=== PATIENT | male | born 2000 ===

== ENCOUNTER 2024-11-25 15:51 | Inpatient (IN) | payer OTHER, SELFPAY ==
[2024-11-25 16:12] VITALS: BP 120/74; BP 132/84; PULSE 73; PULSE 87; RESP 16; TEMP 37.1; O2SAT 100; O2SAT 98; BMI 19.0
[2024-11-25 16:17] VITALS: RESP 16
--- NOTE | 2024-11-25 16:47 | ED_ITS ---
HPI - Psych General Chief Complaint: Psychiatric Symptoms Stated Complaint: sect. 12 from n, paranoia,hallucinations Time Seen by Provider: 11/25/24 16:11 Source: patient and EMS Mode of arrival: EMS Limitations: no limitations History of Present Illness ED Provider: Marivel Spaulding NP HPI Narrative: Patient is a 24-year-old male who presents emergency department via EMS coming from [facility] office. Patient states he is here as he has not been doing well endorsing paranoia and hallucinations. Family expressed concern that he evidently has been collecting weapons at home. He states that he has been compliant with his divalproex as prescribed. Admits to has tried to establish relationship with a therapist in the past to [facility] but it has never really worked out. Admits that he has not slept in 3 days. On review of the section 12, patient with a history of schizoaffective disorder, bipolar type having paranoid hallucinations, delusions persecutory, auditory/visual/tactile hallucinations, grandiosity, poor judgment, poor insight, and manic. Denies recreational drug or alcohol usage. Denies suicidal or homicidal ideations. offers no physical complaints. Related Data Home Medications ?Medication ?Instructions ?Recorded ?Confirmed divalproex 500 mg tablet,delayed 500 mg PO BID 11/25/24 11/25/24 release Allergies Allergy/AdvReac Type Severity Reaction Status Date / Time No Known Allergies Allergy Verified 11/25/24 16:14 Review of Systems 2 Review of Systems: Yes all other systems are reviewed and are negative PMFSH Past Medical History Attestation statement: The following information was validated with the patient. Source: old records reviewed Social History Social History Smoked in Last 30 Days: No Use of substances other than those prescribed or required for medical reasons: No Advance Directives: No Advance Directives Information Provided: No Physical Exam 2 Vital Signs: Vital Signs: Last Vital Signs Temp 98.7 F 11/25/24 16:12 Pulse 73 11/25/24 16:12 Resp 16 11/25/24 16:17 BP 120/74 11/25/24 16:12 Pulse Ox 100 11/25/24 16:12 O2 Del Method Room Air 11/25/24 16:12 BMI result Body Mass Index 19.0 Appearance: Alert.?Oriented to person, place and time. No acute distress.?Normal affect. Eyes: Pupils equal, round and reactive to light.? ENT: Pharynx normal.?? Neck: Normal inspection.? Neck supple.?? CVS: Heart sounds normal. Normal heart rate and rhythm.? Pulses normal.?? Respiratory: No respiratory distress.? Lung sounds clear to auscultation bilaterally?? Abdomen: Soft and non-tender. Normoactive bowel sounds. Skin: Skin warm and dry.? Normal skin color.? Extremities: No lower extremity edema.? Neuro: Moves all extremities spontaneously. Sensation intact bilaterally. CN II- XII intact. No focal neuro deficits. Ambulates with normal steady gait. Course Reevaluation(s) Reevaluation #1: Patient meeting criteria for inpatient level of care, remains on section 12. Time: 19:56 Medical Decision Making Medical Decision Making [facility] Narrative: Patient is a 24-year-old male with past medical history of schizoaffective disorder, bipolar type who presents emergency department on a section 12 from [facility] as per HPI, having paranoid hallucinations, evidently collecting weapons at home. He offers no physical complaints in his physical examination at this time is benign. Overall he is well-appearing, nontoxic. Plan to obtain serum labs for medical clearance, and refer to care team for safe disposition planning. Differential Diagnosis Differential Diagnoses: The differential diagnosis associated with the presentation includes (See narrative above and below for further detail) Admission/Observation Consideration of admission/observation: Escalation of care including admission/observation considered Patient is being observed in the Emergency Department for paranoia and delusions. Observation time was started at 16:50 on 11/25/2024.?The patient is currently stable and non-toxic appearing. Observation is being initiated in the Emergency Department to allow time to help differentiate if the patient's paranoia and delusions is due to Bipolar Anitha, Bipolar Depression, and Schizophrenia. The patient will receive frequent psychiatric assessments from the provider as well as from nursing staff. The patient will also be monitored for the need of PRN agitation medications such as Haldol, Ativan, and Benadryl. Consult Healthcare Provider Management of the patient was discussed with: Behavioral Health Provider (CARE team) Lab Data [facility] Lab Attestation statement: I reviewed the patient's lab results. CBC is without leukocytosis, anemia, thrombocytopenia. No significant electrolyte derangement. No MARGARITA. LFTs unremarkable. Urinalysis without evidence to suggest infection. Toxicology is positive only for marijuana alcohol level nondetectable. 11/25/24 17:03 11/25/24 17:03 Labs: Lab Results 11/25/24 11/25/24 Range/Units 16:56 17:03 WBC 6.2 (4.8-10.8) X10*3/uL RBC 4.68 (4.60-5.80) X10*6/uL Hgb 14.2 (14.0-18.0) g/dl Hct 40.0 L (42.0-52.0) % MCV 85.5 (80.0-98.0) fL MCH 30.3 (27.0-33.0) pg MCHC 35.5 (31.0-36.0) g/dl RDW 13.0 (11.0-16.0) % Plt Count 182 (160-400) X10*3/uL MPV 10.6 (9.4-12.4) fL Immature Gran % (Auto) 0.2 (0.0-0.4) % Neut % (Auto) 36.9 L (45-73) % Lymph % (Auto) 49.7 H (20-40) % Wayne % (Auto) 12.2 H (2-11) % Eos % (Auto) 0.5 (0-4) % Baso % (Auto) 0.5 (0-2) % Lymph # (Auto) 3.1 (1.2-4.9) X10*3/uL Wayne # (Auto) 0.8 (0.1-1.2) X10*3/uL Eos # (Auto) 0.0 (0.0-0.4) X10*3/uL Baso # (Auto) 0.0 (0.0-0.2) X10*3/uL Abs Immat Gran (auto) 0.01 (0.00-0.03) X10*3/uL Absolute Neuts (auto) 2.3 (2.0-8.3) x10*3/uL Absolute Nucleated RBC 0.000 (0.0-0.012) X10*3/uL Nucleated RBC % (auto) 0.0 (0.0-0.2) /100WBC Sodium 142 (135-145) mmol/L Potassium 4.4 (3.3-5.1) mmol/L Chloride 110 H (96-108) mmol/L Carbon Dioxide 26 (22-29) mmol/L Anion Gap 10 L (12-20) BUN 10 (9-16) mg/dL Creatinine 0.95 (0.5-1.4) mg/dL Estim Creat Clear Calc 95.3 Estimated GFR > 60 Random Glucose 87 (60-115) mg/dL Calcium 9.5 (8.4-10.2) mg/dL Total Bilirubin 0.6 (0.0-1.0) mg/dL AST 29 (5-37) U/L ALT 27 (0-40) U/L Alkaline Phosphatase 69 (39-117) U/L Total Protein 6.7 (6.5-8.0) g/dL Albumin 4.5 (3.5-5.0) g/dL Urine Color Dark Yellow Urine Appearance Cloudy Urine pH 7.0 (5.0-9.0) Ur Specific Parlier 1.025 (1.005-1.025) Urine Protein Trace (Neg-Trace) mg/dL Urine Glucose (UA) Negative (Negative) mg/dL Urine Ketones 15 (Negative) mg/dL Urine Blood Negative (Negative) Urine Nitrite Negative (Negative) Ur Leukocyte Esterase Trace H (Negative) Urine RBC 0-2 (0-2) /HPF Urine WBC 0-5 (0-5) /HPF Ur Squamous Epith Cells 0-2 (0-2) /HPF Urine Bacteria None Seen (None Seen) Hyaline Casts 0-2 (0-2) /LPF Urine Opiates Screen Not Detected (Not Detect) Ur Buprenorphine Scrn Not Detected (Not Detect) ng/mL Ur Oxycodone Screen Not Detected (Not Detect) ng/mL Urine Methadone Screen Not Detected (Not Detect) ng/mL Urine Fentanyl Screen Not Detected (Not Detect) Ur Barbiturates Screen Not Detected (Not Detect) Ur Phencyclidine Scrn Not Detected (Not Detect) Ur Amphetamines Screen Not Detected (Not Detect) U Benzodiazepines Scrn Not Detected (Not Detect) Urine Cocaine Screen Not Detected (Not Detect) U Marijuana (THC) Screen POSITIVE H (Not Detect) Ethyl Alcohol < 10 mg/dL Independent Historian Clinical information obtained from an independent historian. History obtained from or confirmed by: EMS Discharge Plan Discharge Clinical Impression: Acute paranoia, Hallucination Patient Disposition: Still a Patient Prescriptions: No Action divalproex 500 mg tablet,delayed release (DR/EC) 500 mg PO BID Interventions: Kenly-Suicide Risk Severity Scale Last Done: 11/25/24 16:17 Print Language: Dutch
[2024-11-25 17:12] LABS: Appearance Urine Cloudy; Color Urine Dark Yellow; Glucose Urine UA Negative (Negative); Leukocyte Esterase Urine Trace (Negative); Nitrite Urine Negative (Negative); Specific Gravity - Urine 1.025 (1.005-1.025); UMIC TRIGGER UACC YES; Urine Blood Negative (Negative); Urine Ketones 15 mg/dL (Negative); Urine Protein Trace mg/dL (Neg-Trace)
[2024-11-25 17:15] LABS: Bacteria Urine None Seen (None Seen); Hyaline Casts Urine 0-2 /LPF (0-2); RBC Urine 0-2 /HPF (0-2); Squamous Epithelial Cell Urine 0-2 /HPF (0-2); WBC Urine 0-5 /HPF (0-5)
[2024-11-25 17:17] LABS: Amphetamine Screen Urine Not Detected (Not Detect); Barbiturates, Urine Not Detected (Not Detect); Benzodiazepines Screen Urine Not Detected (Not Detect); Buprenorphine Scr Not Detected (Not Detect); Cannabinoid Screen Urine POSITIVE (Not Detect); Cocaine Screen Urine Not Detected (Not Detect); Fentanyl, urine Not Detected (Not Detect); Methadone Screen, Urine Not Detected (Not Detect); Opiate Screen Urine Not Detected (Not Detect); Oxycodone Screen Urine Not Detected (Not Detect); Phencyclidine Screen Urine Not Detected (Not Detect)
[2024-11-25 17:22] LABS: MANUAL DIFF FLAG NO
--- NOTE | 2024-11-25 17:23 | PC.NURSE ---
patient is calm and cooperative, offering no complaints to this RN. Pending CARE eval
[2024-11-25 17:24] LABS: Basophils Percent Auto 0.5 % (0-2); Eosinophils Percent Auto 0.5 % (0-4); Hemoglobin 14.2 g/dl (14.0-18.0); Imm Gran Abs Auto 0.01 X10*3/uL (0.00-0.03); Imm Gran Pct Auto 0.2 % (0.0-0.4); Lymphocytes Absolute Auto 3.1 X10*3/uL (1.2-4.9); Lymphocytes Percent Auto 49.7 % (20-40); Mean Corpuscular HGB Conc 35.5 g/dl (31.0-36.0); Mean Corpuscular Hemoglobin 30.3 pg (27.0-33.0); Mean Corpuscular Volume 85.5 fL (80.0-98.0); Mean Platelet Volume 10.6 fL (9.4-12.4); Monocytes Absolute Auto 0.8 X10*3/uL (0.1-1.2); Monocytes Percent Auto 12.2 % (2-11); Neutrophils Absolute Auto 2.3 x10*3/uL (2.0-8.3); Neutrophils Percent Auto 36.9 % (45-73); Platelet Count 182 X10*3/uL (160-400); Red Blood Count 4.68 X10*6/uL (4.60-5.80); White Blood Count 6.2 X10*3/uL (4.8-10.8)
[2024-11-25 17:39] LABS: Alanine Aminotransferase 27 U/L (0-40); Albumin Level 4.5 g/dL (3.5-5.0); Alkaline Phosphatase 69 U/L (39-117); Anion Gap 10 (12-20); Aspartate Amino Transferase 29 U/L (5-37); Bilirubin Total 0.6 mg/dL (0.0-1.0); Blood Urea Nitrogen 10 mg/dL (9-16); Calcium 9.5 mg/dL (8.4-10.2); Carbon Dioxide 26 mmol/L (22-29); Chloride 110 mmol/L (96-108); Creatinine Clr Calc Pharmacy 95.3; Estimated Glomerular Filt Rate > 60; Ethanol < 10 mg/dL; Glucose Random 87 mg/dL (60-115); Potassium 4.4 mmol/L (3.3-5.1); Sodium 142 mmol/L (135-145); Total Protein 6.7 g/dL (6.5-8.0)
--- NOTE | 2024-11-25 19:52 | PC.NURSE ---
patient appears to remain at rest presently respirations are even and unlabored aptietn
--- NOTE | 2024-11-25 19:55 | PC.NURSE ---
appears in no distress...(continues from other note)
[2024-11-25] MEDS: Divalproex Sodium 500 MG TABLET.DR PO (20:15)
--- NOTE | 2024-11-26 | ECG_ITS ---
Test Reason : MED CLEARANCE Blood Pressure : */* mmHG Vent. Rate : 59 BPM Atrial Rate : 59 BPM P-R Int : 126 ms QRS Dur : 72 ms QT Int : 412 ms P-R-T Axes : 78 70 51 degrees QTcB Int : 407 ms Sinus bradycardia with Premature atrial complexes Otherwise normal ECG No previous ECGs available Referred By: Chica Alamraz Electronically Signed By: MEMO DANIELS MD
[2024-11-26 03:21] VITALS: BP 123/79; PULSE 56; RESP 17; TEMP 36.7; O2SAT 100
--- NOTE | 2024-11-26 04:09 | PC.NURSE ---
client seated in room on desk t/w inquired to any medications to help him i prefer not to take anything
[2024-11-26] MEDS: Divalproex Sodium 500 MG TABLET.DR PO ×2 (08:20→20:25)
--- NOTE | 2024-11-26 09:40 | MHC.CARE ---
Pt will be an inpatient adult bedsearch
--- NOTE | 2024-11-26 10:15 | PHA.MEDREC ---
Addendum entered by Darline Smyth RPh 11/26/24 10:18: reviewed by [facility]. Original Note: Pharmacy Consult ? Medication Reconciliation Pharmacy reviewed med rec done by nursing. Spoke with nurse who confirmed the med rec and she stated the patient only was taking Divalproex 500mg twice a day and had an Rx bottled she was able to use to confirm the med rec.
[2024-11-26 10:45] VITALS: BP 131/65; PULSE 55; RESP 14; TEMP 36.8; O2SAT 99
--- NOTE | 2024-11-26 11:28 | PC.NURSE ---
Speaking with Mother on the phone at this time. Patient is calm/cooperative, pleasant. Ambulates steadily. Able to make needs known. No acute distress. Inpatient bedsearch. Care ongoing by this RN.
[2024-11-26 14:13] VITALS: BP 140/79; PULSE 51; RESP 16; TEMP 36.9; O2SAT 99; BMI 18.9
--- NOTE | 2024-11-26 18:52 | PC.ADMIT ---
Addendum entered by Teri Malone RN 11/26/24 19:13: Abran did deny urges to harm self or others. He does appear to be internally preoccupied at times. Original Note: Abran arrived via wheelchair from [facility] ED pod. He is alert, oriented x4. He was cooperative with skin and safety check. The skin check was unremarkable. He initially had a blunted affect but throughout the interaction he grew more and more labile. Flat at times, laughing incongruently at times, irritable at others. Per Crisis report ??pt was seen by [facility] isaak on 11/24 at home after his mother requested an assessment, voicing concerns due to pt presenting with paranoia and concerning behavior. He was later seen on 11/25 at [facility] office after his mother reported concerns as pt has not been sleeping, paranoia, increased agitation. [facility] made him an inpatient bed search and he was BIBA. He reports poor sleep for about a week.? He initially refused to talk with this nurse at all. ?Whenever I say anything it gets me into situations like this?, and he turned his head away from tw. He spoke tangentially about a ?cousin that was locked away when I was a kid like this?, ?I am now going to be here forever?. He refuses to sign anything with tw. He denies any health problems and ?eats only healthy things?. He lives at home with his parents after losing his job a few weeks ago and breaking up with his partner which ?broke my spirit?, ?i love my parents, my relationship with my mom is complicated but good?. He has been receiving psychiatric care for a ?few years?, he has been regularly taking his depakote. He doesn't smoke, drink alcohol or use any substances. He appeared genuinely surprised when I mentioned his tox screen being positive for cannabis. ?I haven't smoked in at least 90 days?. He does endorse not sleeping. ?I thought that's why I was brought here, to sleep?. The conversation required frequent redirection to get back on topic. He often refers to ?people are out to get me? or similar. He wont elaborate, his voice trails off and he looks into the distance or at the table. He agreed to the flu vax, but refused to sign any ROIs. He did sign a CV with Dr Norman and is on 15 minute safety checks.
[2024-11-27 08:00] VITALS: BP 150/62; PULSE 48; RESP 18; TEMP 36.4; O2SAT 100
[2024-11-27] MEDS: Divalproex Sodium 500 MG TABLET.DR PO ×2 (08:50→20:35)
[2024-11-27 09:12] LABS: Estimated Average Glucose 105 mg/dL; Hemoglobin A1C 149.0605 umol/L; Hemoglobin A1c % 5.3 % (<6.0); Total Hemoglobin (HGBA1C) 4287.2088 umol/L
[2024-11-27 09:17] LABS: Cholesterol 133 mg/dL (<200); HDL Cholesterol 51 mg/dL (>40); LDL Cholesterol Calculated 71 mg/dL (<100); Magnesium 2.4 mg/dL (1.6-2.6); Triglycerides 58 mg/dL (<150)
[2024-11-27 09:35] LABS: Free T4 (Free Thyroxine) 1.12 ng/dL (0.71-1.85)
[2024-11-27 09:46] LABS: Folate 11.6 ng/mL (> or = 4.0); Vitamin B12 926 pg/mL (200-900)
[2024-11-27] MEDS: Flu Vacc TS2024-25(6mos up)/PF 0.5 ML SYRINGE IM (10:04)
[2024-11-27 20:00] VITALS: BP 122/84; PULSE 68; RESP 16; TEMP 36.6; O2SAT 98
--- NOTE | 2024-11-27 20:59 | P.HPPS_ITS ---
HPI Date of Service: 11/27/24 Chief Complaint: schizoaffective disorder Sources of Information: chart reviewed and crisis/core team assessment reviewed HPI Subjective Notes: Conditional Voluntary and 3 Day Healthcare Proxy: No Guardianship: No Medical Problems Affecting Mental Status: No Narrative: 24 yo male, hx of schizoaffective disorder, bipolar type to ER with EMS after a community crisis eval. Pt exhibiting sx of psychosis, paranoia, hallucinations per report along with grandiosity and poor judgment. Family reports poor sleep. Information is taken from crisis report as pt declined to meet with team for admission eval as we were not on his schedule Family reports pt is gathering weapons in the home as he is paranoid (taser, pepper spray). Past Psychiatric History: IP: 1 OP: Chano Mckoy APRN, [place], [place] Medical Evaluation Reviewed: Yes [facility] Medical History (Updated 11/27/24 @ 21:16 by Chica Almaraz APRN) Schizoaffective disorder, bipolar type Family History: Bipolar Social History: Born in [place], raised in various places in and out of the country. Sisters: 2 Raised also with the child of a relative graduate, [employer] 2023 Lives with parents Substance History: Cannabis positive Diagnostics Vital Signs (24Hr): Vital Signs - 24 hr 11/27/24 08:00 Temperature 97.5 F Pulse Rate 48 L Respiratory Rate 18 Blood Pressure 150/62 H Pulse Oximetry 100 Oxygen Delivery Method Room Air BMI result Body Mass Index 18.9 Labs 11/25/24 17:03 11/25/24 17:03 Labs: Laboratory Results - last 48 hr 11/27/24 08:12 Estimat Average Glucose 105 Hemoglobin A1c % 5.3 Magnesium 2.4 Triglycerides 58 Cholesterol 133 LDL Cholesterol, Calc 71 HDL Cholesterol 51 Vitamin B12 926 H Folate 11.6 TSH 1.10 Free T4 1.12 Meds/Allergies Meds Home Medications ?Medication ?Instructions ?Recorded ?Confirmed ?Type divalproex 500 mg tablet,delayed 500 mg PO BID 11/25/24 11/25/24 History release Allergies Allergies Allergy/AdvReac Type Severity Reaction Status Date / Time No Known Allergies Allergy Verified 11/25/24 16:14 Mental Status Exam Mental Status Exam Narrative: Pt declined to meet. He is observed in the milieu. He interacts briefly and exhibits paranoia Assessment & Plan Assessment & Plan (1) Schizoaffective disorder, bipolar type: Status: Acute Code(s): F25.0 - Schizoaffective disorder, bipolar type Plan Admit, CV-3 day placed, 15 minute checks Continue valproate Valproate level Olanzapine prn Encourage milieu engagement Collateral contacts Diagnostics as needed Discharge planning. Patient educated on: other Reason for continued inpatient stay Substantial Risk for: rapid decompensation Statement Statement: I have reviewed the history and physical and performed a pertinent examination on my patient. No changes have occurred unless specified. If the History and Physical was not performed prior to admission, the Hospitalist's service will be consulted for completing the admission physical. Time Spent With Patient Time: Total time managing care of this patient today ____ minutes.
[2024-11-28 07:52] VITALS: BP 115/58; PULSE 52; TEMP 36.7; O2SAT 99
[2024-11-28] MEDS: Divalproex Sodium 500 MG TABLET.DR PO ×2 (08:14→20:43)
[2024-11-28 08:53] LABS: Valproate 66.9 mcg/mL (50.0-100.0)
--- NOTE | 2024-11-28 10:06 | P.PNPSI_ITS ---
Subjective Subjective Date of Service: 11/28/24 Reason For Visit: schizoaffective disorder Subjective Notes: Coats Warning (gave on 11/28/24) Interim History: met with patient; discussed with team Draw Furnace Tender gave Coats warning. pt guarded with marketing copywriter. He says he needed to come here since he was not sleeping (for about 6 days prior to admission). He says he's feeling better now that he's slept. Draw Furnace Tender inquired regarding intake info and gathering tazer's, pepper spray...pt asked if he needed a billing associate...he then said i as told 'grab this stuff and go with your parents... but then asked if he needed a billing associate and said he does not like the line of questioning and very uncomfortable with the questions and left the interview...later he apologized to marketing copywriter saying he's just uncomfortable but understands this marketing copywriter is just doing writers job...He gave permission to talk w/ his parents.... talked w/ father and mother (pt gave permission to talk w/ parents) this episode started about 3 weeks ago (last episode in April; only went to ED; seems that when doing OK, no clear evidence of psychosis...) -they confirmed that he did get a tazer, pepper spray which is concerning to parents...he gave his mom the tazer without explanation. Had been saying protecting us and himself, lots of people coming after him and parents...they said he was done... reached out to parents at 4am asking father if they were safe (calling from his girlfriends) -He has paranoia, afraid, thinks someone after him, hearing voices, not sleeping...turning off Wifi worried he's being tracked and followed (also worried his parents are a part of it); he's suspicious of parents and others...does not want to take medications...(though they think he was taking the depakote). -would be paranoid others thinking about hurting him...mom would have to tell him that he's safe. Will ask did you hear that? that person said i'm going to hurt you.. or that a person is laughing at me getting in way of job; lost 3 jobs due to stress Seroquel: side-effects Episodes started HS. 2018 past hospitalization Sickle Cell trait Hematoma at 8months old with neurological sequela Mental Status Exam Mental Status Exam Narrative: Pt is alert and oriented; behavior is cooperative but also quite guarded; dressed in hospital attire with unkempt hair but adequate hygiene; mood is described as good though affect congruent constricted; eye contact appropriate; Speech is normal rate, volume and prosody and not pressured; no psychomotor agitation/retardation present; thought process is goal directed; Thought content is on tx but also alluded into suspicious ideations;; denies any SI/HI. Denies AVH though patient at times appears internally preoccupied Patients insight and judgment impaired Diagnostics Vital Signs (24Hr): Vital Signs - 24 hr 11/27/24 20:00 11/28/24 07:52 Temperature 98 F 98.1 F Pulse Rate 68 52 Respiratory Rate 16 Blood Pressure 122/84 115/58 L Pulse Oximetry 98 99 Oxygen Delivery Method Room Air Room Air BMI result Body Mass Index 18.9 Labs 11/25/24 17:03 11/25/24 17:03 Labs: Laboratory Results - last 48 hr 11/27/24 11/28/24 08:12 08:11 Estimat Average Glucose 105 Hemoglobin A1c % 5.3 Magnesium 2.4 Triglycerides 58 Cholesterol 133 LDL Cholesterol, Calc 71 HDL Cholesterol 51 Vitamin B12 926 H Folate 11.6 TSH 1.10 Free T4 1.12 Valproic Acid 66.9 Medications Medications Current Medications Acetaminophen (Acetaminophen 325 Mg Tablet) 650 mg PO Q6H PRN PRN Reason: Headache/Pain, Scale 1-10 Al Hydroxide/Mg Hydroxide (Magnesium Hydrox/Alum Hydrox 30 Ml Oral.Susp) 30 ml PO Q6H PRN PRN Reason: Heartburn/Nausea Divalproex Sodium (Divalproex Sodium 500 Mg Tablet.Dr) 500 mg PO BID CELSO Last Admin: 11/28/24 08:14 Dose: 500 mg Hydroxyzine HCl (Hydroxyzine Hcl 25 Mg Tablet) 25 mg PO Q6H PRN PRN Reason: mild anxiety Magnesium Hydroxide (Milk Of Magnesia 30 Ml Oral.Susp) 30 ml PO DAILY PRN PRN Reason: Constipation Nicotine Polacrilex (Nicotine Polacrilex 2 Mg Gum) 4 mg BUCCAL Q2H PRN PRN Reason: Nicotine Cravings Olanzapine (Olanzapine 5 Mg Tablet) 5 mg PO Q4H PRN PRN Reason: sadie, agitation Trazodone HCl (Trazodone Hcl 50 Mg Tablet) 50 mg PO BEDTIME MRX1 PRN PRN Reason: Insomnia Allergies Allergies Allergy/AdvReac Type Severity Reaction Status Date / Time No Known Allergies Allergy Verified 11/25/24 16:14 Assessment & Plan Assessment & Plan (1) Schizoaffective disorder, bipolar type: Status: Acute Code(s): F25.0 - Schizoaffective disorder, bipolar type (2) Sickle cell trait: Status: Acute Code(s): D57.3 - Sickle-cell trait Plan HPI: 24 yo male, hx of schizoaffective disorder, bipolar type to ER with EMS after a community crisis eval. Pt exhibiting sx of psychosis, paranoia, hallucinations per report along with grandiosity and poor judgment. Family reports poor sleep. Information is taken from crisis report as pt declined to meet with team for admission eval as we were not on his schedule Family reports pt is gathering weapons in the home as he is paranoid (taser, pepper spray). Past Psychiatric History: IP: 1 Hospital course: 11/28 Draw Furnace Tender gave Coats warning. pt guarded with marketing copywriter. He says he needed to come here since he was not sleeping (for about 6 days prior to admission). He says he's feeling better now that he's slept. Draw Furnace Tender inquired regarding intake info and gathering tazer's, pepper spray...pt asked if he needed a billing associate...he then said i as told 'grab this stuff and go with your parents... but then asked if he needed a billing associate and said he does not like the line of questioning and very uncomfortable with the questions and left the interview...later he apologized to marketing copywriter saying he's just uncomfortable but understands this marketing copywriter is just doing writers job...He gave permission to talk w/ his parents.... Collateral: talked w/ father and mother (pt gave permission to talk w/ parents) this episode started about 3 weeks ago (last episode in April; only went to ED; seems that when doing OK, no clear evidence of psychosis...) -they confirmed that he did get a tazer, pepper spray which is concerning to parents...he gave his mom the tazer without explanation. Had been saying protecting us and himself, lots of people coming after him and parents...they said he was done... reached out to parents at 4am asking father if they were safe (calling from his girlfriends) -He has paranoia, afraid, thinks someone after him, hearing voices, not sleeping...turning off Wifi worried he's being tracked and followed (also worried his parents are a part of it); he's suspicious of parents and others...does not want to take medications...(though they think he was taking the depakote). -would be paranoid others thinking about hurting him...mom would have to tell him that he's safe. Will ask did you hear that? that person said i'm going to hurt you.. or that a person is laughing at me getting in way of job; lost 3 jobs due to stress Seroquel: side-effects Episodes started HS. 2018; past hospitalization Sickle Cell trait Hematoma at 8months old with neurological sequela Plan: Three day notice Q 15 minute checks Continue Depakote 500 mg b.i.d.; if patient amenable, may tried to increase Hopefully patient will be open to further medication management Patient educated on: diagnosis and medication risk/benefits Informed Consent: does not understand Reason for continued inpatient stay Substantial Risk for: inability to function Time Spent With Patient Time: Total time managing care of this patient today ____ minutes.
[2024-11-28 20:00] VITALS: BP 127/87; TEMP 37.2; O2SAT 97
[2024-11-29 08:00] VITALS: BP 119/55; PULSE 60; RESP 16; TEMP 36.2; O2SAT 100
--- NOTE | 2024-11-29 08:13 | P.PNPSI_ITS ---
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- depakote - does not want increase dose or trial of antipsychotic- wanted to keep interview superficial and not discuss ppt events Medication Compliance: Yes Side effects from medications: No Attending Groups: Intermittent Review of Systems Acute medical concerns: No Medical Review of Systems: unchanged Mental Status Exam Mental Status Exam Patient Appearance: Appropriate Patient Orientation: Person, Place, Time and Situation Level of Consciousness: Awake Patient Behavior: Guarded Mood Description: Constricted Affect Description: Blunted Patient Cognition Impaired: No Ability to Follow Directions: Good Speech Pattern: Clear Hallucinations: None Delusions: Paranoid Ideation (? denies currently) Thought Process: Intact and Goal Oriented Thought Content: positive for Poverty of Content Depressive Symptoms: Difficulty Sleeping (better since here) Judgement: Fair Diagnostics Vital Signs (24Hr): Vital Signs - 24 hr 11/28/24 20:00 11/29/24 08:00 Temperature 98.9 F 97.2 F Pulse Rate 60 Respiratory Rate 16 Blood Pressure 127/87 119/55 L Pulse Oximetry 97 100 BMI result Body Mass Index 18.9 Labs 11/25/24 17:03 11/25/24 17:03 Labs: Laboratory Results - last 48 hr 11/27/24 11/28/24 08:12 08:11 Estimat Average Glucose 105 Hemoglobin A1c % 5.3 Magnesium 2.4 Triglycerides 58 Cholesterol 133 LDL Cholesterol, Calc 71 HDL Cholesterol 51 Vitamin B12 926 H Folate 11.6 TSH 1.10 Free T4 1.12 Valproic Acid 66.9 Medications Medications Current Medications Acetaminophen (Acetaminophen 325 Mg Tablet) 650 mg PO Q6H PRN PRN Reason: Headache/Pain, Scale 1-10 Al Hydroxide/Mg Hydroxide (Magnesium Hydrox/Alum Hydrox 30 Ml Oral.Susp) 30 ml PO Q6H PRN PRN Reason: Heartburn/Nausea Divalproex Sodium (Divalproex Sodium 500 Mg Tablet.) 500 mg PO BID CELSO Last Admin: 11/28/24 20:43 Dose: 500 mg Hydroxyzine HCl (Hydroxyzine Hcl 25 Mg Tablet) 25 mg PO Q6H PRN PRN Reason: mild anxiety Magnesium Hydroxide (Milk Of Magnesia 30 Ml Oral.Susp) 30 ml PO DAILY PRN PRN Reason: Constipation Nicotine Polacrilex (Nicotine Polacrilex 2 Mg Gum) 4 mg BUCCAL Q2H PRN PRN Reason: Nicotine Cravings Olanzapine (Olanzapine 5 Mg Tablet) 5 mg PO Q4H PRN PRN Reason: sadie, agitation Trazodone HCl (Trazodone Hcl 50 Mg Tablet) 50 mg PO BEDTIME MRX1 PRN PRN Reason: Insomnia Allergies Allergies Allergy/AdvReac Type Severity Reaction Status Date / Time No Known Allergies Allergy Verified 11/25/24 16:14 Assessment & Plan Assessment & Plan (1) Schizoaffective disorder, bipolar type: Status: Acute Code(s): F25.0 - Schizoaffective disorder, bipolar type (2) Sickle cell trait: Status: Acute Code(s): D57.3 - Sickle-cell trait Plan HPI: 24 yo male, hx of schizoaffective disorder, bipolar type to ER with EMS after a community crisis eval. Pt exhibiting sx of psychosis, paranoia, hallucinations per report along with grandiosity and poor judgment. Family reports poor sleep. Information is taken from crisis report as pt declined to meet with team for admission eval as we were not on his schedule Family reports pt is gathering weapons in the home as he is paranoid (taser, pepper spray). Past Psychiatric History: IP: 1 Hospital course: 11/28 Civil Technician gave Coats warning. pt guarded with television script writer. He says he needed to come here since he was not sleeping (for about 6 days prior to admission). He says he's feeling better now that he's slept. Civil Technician inquired regarding intake info and gathering tazer's, pepper spray...pt asked if he needed a staff scientist...he then said i as told 'grab this stuff and go with your parents... but then asked if he needed a staff scientist and said he does not like the line of questioning and very uncomfortable with the questions and left the interview...later he apologized to television script writer saying he's just uncomfortable but understands this television script writer is just doing writers job...He gave permission to talk w/ his parents.... Collateral: talked w/ father and mother (pt gave permission to talk w/ parents) this episode started about 3 weeks ago (last episode in April; only went to ED; seems that when doing OK, no clear evidence of psychosis...) -they confirmed that he did get a tazer, pepper spray which is concerning to parents...he gave his mom the tazer without explanation. Had been saying protecting us and himself, lots of people coming after him and parents...they said he was done... reached out to parents at 4am asking father if they were safe (calling from his girlfriends) -He has paranoia, afraid, thinks someone after him, hearing voices, not sleeping...turning off Wifi worried he's being tracked and followed (also worried his parents are a part of it); he's suspicious of parents and others...does not want to take medications...(though they think he was taking the depakote). -would be paranoid others thinking about hurting him...mom would have to tell him that he's safe. Will ask did you hear that? that person said i'm going to hurt you.. or that a person is laughing at me getting in way of job; lost 3 jobs due to stress Seroquel: side-effects Episodes started HS. 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 Patient educated on: medication risk/benefits Informed Consent: further education needed Reason for continued inpatient stay Substantial Risk for: rapid decompensation Time Spent With Patient Time: Total time managing care of this patient today ____ minutes.
[2024-11-29] MEDS: Divalproex Sodium 500 MG TABLET.DR PO ×2 (08:29→21:12)
[2024-11-29 20:00] VITALS: BP 119/75; PULSE 68; TEMP 36.9; O2SAT 99
[2024-11-30 08:00] VITALS: BP 126/72; PULSE 88; RESP 16; TEMP 36.4; O2SAT 98
[2024-11-30] MEDS: Divalproex Sodium 500 MG TABLET.DR PO ×2 (08:46→20:12)
--- NOTE | 2024-11-30 10:41 | HO.PSYCHPN ---
Subjective Subjective Date of Service: 11/30/24 Reason For Visit: schizoaffective disorder Subjective Notes: Conditional Voluntary Healthcare Proxy: No Guardianship: No Medical Problems Affecting Mental Status: No Interim History: 24 yo glad to be sleeping, not really wanting to get into how he was feeling before admission or why he was feeling that way and what might be different now- since we have not changed medication- discussed ? of what will be different when he goes home- if he doesn't understand this or discuss. Medication Compliance: Yes Side effects from medications: No Attending Groups: Intermittent Review of Systems Acute medical concerns: No Medical Review of Systems: unchanged Mental Status Exam Mental Status Exam Patient Appearance: Appropriate Patient Orientation: Person, Place, Time and Situation Level of Consciousness: Awake Patient Behavior: Guarded Mood Description: Constricted Affect Description: Blunted Patient Cognition Impaired: No Ability to Follow Directions: Good Speech Pattern: Clear Hallucinations: None Delusions: Paranoid Ideation (? denies currently) Thought Process: Intact and Goal Oriented Thought Content: positive for Poverty of Content Depressive Symptoms: Difficulty Sleeping (better since here) Judgement: Fair Diagnostics Vital Signs (24Hr): Vital Signs - 24 hr 11/29/24 20:00 11/30/24 08:00 Temperature 98.5 F 97.5 F Pulse Rate 68 88 Respiratory Rate 16 Blood Pressure 119/75 126/72 Pulse Oximetry 99 98 Oxygen Delivery Method Room Air BMI result Body Mass Index 18.9 Labs 11/25/24 17:03 11/25/24 17:03 Medications Medications Current Medications Acetaminophen (Acetaminophen 325 Mg Tablet) 650 mg PO Q6H PRN PRN Reason: Headache/Pain, Scale 1-10 Al Hydroxide/Mg Hydroxide (Magnesium Hydrox/Alum Hydrox 30 Ml Oral.Susp) 30 ml PO Q6H PRN PRN Reason: Heartburn/Nausea Divalproex Sodium (Divalproex Sodium 500 Mg Tablet.Dr) 500 mg PO BID CELSO Last Admin: 11/30/24 08:46 Dose: 500 mg Hydroxyzine HCl (Hydroxyzine Hcl 25 Mg Tablet) 25 mg PO Q6H PRN PRN Reason: mild anxiety Magnesium Hydroxide (Milk Of Magnesia 30 Ml Oral.Susp) 30 ml PO DAILY PRN PRN Reason: Constipation Nicotine Polacrilex (Nicotine Polacrilex 2 Mg Gum) 4 mg BUCCAL Q2H PRN PRN Reason: Nicotine Cravings Olanzapine (Olanzapine 5 Mg Tablet) 5 mg PO Q4H PRN PRN Reason: sadie, agitation Trazodone HCl (Trazodone Hcl 50 Mg Tablet) 50 mg PO BEDTIME MRX1 PRN PRN Reason: Insomnia Allergies Allergies Allergy/AdvReac Type Severity Reaction Status Date / Time No Known Allergies Allergy Verified 11/25/24 16:14 Assessment & Plan Assessment & Plan (1) Schizoaffective disorder, bipolar type: Status: Acute Code(s): F25.0 - Schizoaffective disorder, bipolar type (2) Sickle cell trait: Status: Acute Code(s): D57.3 - Sickle-cell trait Plan HPI: 24 yo male, hx of schizoaffective disorder, bipolar type to ER with EMS after a community crisis eval. Pt exhibiting sx of psychosis, paranoia, hallucinations per report along with grandiosity and poor judgment. Family reports poor sleep. Information is taken from crisis report as pt declined to meet with team for admission eval as we were not on his schedule Family reports pt is gathering weapons in the home as he is paranoid (taser, pepper spray). Past Psychiatric History: IP: 1 Hospital course: 11/28 Manager Equity gave Coats warning. pt guarded with service writer advisor. He says he needed to come here since he was not sleeping (for about 6 days prior to admission). He says he's feeling better now that he's slept. Manager Equity inquired regarding intake info and gathering tazer's, pepper spray...pt asked if he needed a guest experience representative...he then said i as told 'grab this stuff and go with your parents... but then asked if he needed a guest experience representative and said he does not like the line of questioning and very uncomfortable with the questions and left the interview...later he apologized to service writer advisor saying he's just uncomfortable but understands this service writer advisor is just doing writers job...He gave permission to talk w/ his parents.... Collateral: talked w/ father and mother (pt gave permission to talk w/ parents) this episode started about 3 weeks ago (last episode in April; only went to ED; seems that when doing OK, no clear evidence of psychosis...) -they confirmed that he did get a tazer, pepper spray which is concerning to parents...he gave his mom the tazer without explanation. Had been saying protecting us and himself, lots of people coming after him and parents...they said he was done... reached out to parents at 4am asking father if they were safe (calling from his girlfriends) -He has paranoia, afraid, thinks someone after him, hearing voices, not sleeping...turning off Wifi worried he's being tracked and followed (also worried his parents are a part of it); he's suspicious of parents and others...does not want to take medications...(though they think he was taking the depakote). -would be paranoid others thinking about hurting him...mom would have to tell him that he's safe. Will ask did you hear that? that person said i'm going to hurt you.. or that a person is laughing at me getting in way of job; lost 3 jobs due to stress Seroquel: side-effects Episodes started HS. 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 11/30 - continues to keep things superficial- glad he is sleeping - CTP Patient educated on: medication risk/benefits and therapeutic strategies Informed Consent: further education needed Reason for continued inpatient stay Substantial Risk for: rapid decompensation Time Spent With Patient Time: Total time managing care of this patient today ____ minutes.
[2024-11-30 19:42] VITALS: BP 143/71; PULSE 66; RESP 15; TEMP 36.8; O2SAT 98
[2024-12-01 07:57] VITALS: BP 137/74; PULSE 96; TEMP 36.9; O2SAT 98
[2024-12-01] MEDS: Divalproex Sodium 500 MG TABLET.DR PO ×2 (08:49→22:03)
--- NOTE | 2024-12-01 09:22 | HO.PSYCHPN ---
Subjective Subjective Date of Service: 12/01/24 Reason For Visit: schizoaffective disorder Interim History: met with patient; discussed with team; reviewed chart Patient friendly on approach however he soon became guarded said he was done talking. Prior to this he said he continued to feel better restored and back to his regular self which he described as reading, eating and into stuff... n patient attributes this to getting more sleep. When asked why he was not getting sleep before and why he thinks he is getting more sleep now patient could only point to his diet but started to say he did not like this question; when asked about his parents report that patient had been concerned about safety, he said that is just how they respond to things but again said he did not like the questions; inspector automatic typewriter asked about reasons for his guarded approach and vagueness at which point pt said he was done talking Mental Status Exam Mental Status Exam Narrative: Pt is alert and oriented; behavior is cooperative, friendly on approach but guarded with any serious inquiry; dressed in hospital attire with unkempt hair but adequate hygiene; mood is described as good though affect congruent constricted; eye contact appropriate; Speech is normal rate, volume and prosody and not pressured; no psychomotor agitation/retardation present; thought process is goal directed; Thought content is on tx but also alluded into suspicious ideations;; denies any SI/HI. Denies AVH though patient at times appears internally preoccupied Patients insight and judgment impaired Diagnostics Vital Signs (24Hr): Vital Signs - 24 hr 11/30/24 19:42 12/01/24 07:57 Temperature 98.2 F 98.4 F Pulse Rate 66 96 Respiratory Rate 15 Blood Pressure 143/71 H 137/74 Pulse Oximetry 98 98 Oxygen Delivery Method Room Air BMI result Body Mass Index 18.9 Labs 11/25/24 17:03 11/25/24 17:03 Medications Medications Current Medications Acetaminophen (Acetaminophen 325 Mg Tablet) 650 mg PO Q6H PRN PRN Reason: Headache/Pain, Scale 1-10 Al Hydroxide/Mg Hydroxide (Magnesium Hydrox/Alum Hydrox 30 Ml Oral.Susp) 30 ml PO Q6H PRN PRN Reason: Heartburn/Nausea Divalproex Sodium (Divalproex Sodium 500 Mg Tablet.) 500 mg PO BID CELSO Last Admin: 12/01/24 08:49 Dose: 500 mg Hydroxyzine HCl (Hydroxyzine Hcl 25 Mg Tablet) 25 mg PO Q6H PRN PRN Reason: mild anxiety Magnesium Hydroxide (Milk Of Magnesia 30 Ml Oral.Susp) 30 ml PO DAILY PRN PRN Reason: Constipation Nicotine Polacrilex (Nicotine Polacrilex 2 Mg Gum) 4 mg BUCCAL Q2H PRN PRN Reason: Nicotine Cravings Olanzapine (Olanzapine 5 Mg Tablet) 5 mg PO Q4H PRN PRN Reason: sadie, agitation Trazodone HCl (Trazodone Hcl 50 Mg Tablet) 50 mg PO BEDTIME MRX1 PRN PRN Reason: Insomnia Allergies Allergies Allergy/AdvReac Type Severity Reaction Status Date / Time No Known Allergies Allergy Verified 11/25/24 16:14 Assessment & Plan Assessment & Plan (1) Schizoaffective disorder, bipolar type: Status: Acute Code(s): F25.0 - Schizoaffective disorder, bipolar type (2) Sickle cell trait: Status: Acute Code(s): D57.3 - Sickle-cell trait Plan HPI: 24 yo male, hx of schizoaffective disorder, bipolar type to ER with EMS after a community crisis eval. Pt exhibiting sx of psychosis, paranoia, hallucinations per report along with grandiosity and poor judgment. Family reports poor sleep. Information is taken from crisis report as pt declined to meet with team for admission eval as we were not on his schedule Family reports pt is gathering weapons in the home as he is paranoid (taser, pepper spray). Past Psychiatric History: IP: 1 Hospital course: 11/28 Machine Dyer gave Coats warning. pt guarded with inspector automatic typewriter. He says he needed to come here since he was not sleeping (for about 6 days prior to admission). He says he's feeling better now that he's slept. Machine Dyer inquired regarding intake info and gathering tazer's, pepper spray...pt asked if he needed a certified ophthalmic assistant...he then said i as told 'grab this stuff and go with your parents... but then asked if he needed a certified ophthalmic assistant and said he does not like the line of questioning and very uncomfortable with the questions and left the interview...later he apologized to inspector automatic typewriter saying he's just uncomfortable but understands this inspector automatic typewriter is just doing writers job...He gave permission to talk w/ his parents.... Collateral: talked w/ father and mother (pt gave permission to talk w/ parents) this episode started about 3 weeks ago (last episode in April; only went to ED; seems that when doing OK, no clear evidence of psychosis...) -they confirmed that he did get a tazer, pepper spray which is concerning to parents...he gave his mom the tazer without explanation. Had been saying protecting us and himself, lots of people coming after him and parents...they said he was done... reached out to parents at 4am asking father if they were safe (calling from his girlfriends) -He has paranoia, afraid, thinks someone after him, hearing voices, not sleeping...turning off Wifi worried he's being tracked and followed (also worried his parents are a part of it); he's suspicious of parents and others...does not want to take medications...(though they think he was taking the depakote). -would be paranoid others thinking about hurting him...mom would have to tell him that he's safe. Will ask did you hear that? that person said i'm going to hurt you.. or that a person is laughing at me getting in way of job; lost 3 jobs due to stress Seroquel: side-effects Episodes started HS. 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 11/30 - continues to keep things superficial- glad he is sleeping - CTP 12/01 guarded, vague; calm and friendly as long as no serious inquiries no insight -agrees to labs Patient educated on: diagnosis and medication risk/benefits Informed Consent: does not understand Reason for continued inpatient stay Substantial Risk for: rapid decompensation Time Spent With Patient Time: Total time managing care of this patient today ____ minutes.
[2024-12-01 20:00] VITALS: BP 128/83; PULSE 98; RESP 16; TEMP 36.3; O2SAT 93
[2024-12-02] MEDS: hydrOXYzine HCL 25 MG TABLET PO (01:46)
[2024-12-02 07:50] VITALS: BP 123/70; PULSE 90; RESP 18; TEMP 36.2; O2SAT 99
[2024-12-02] MEDS: Divalproex Sodium 500 MG TABLET.DR PO ×2 (08:13→21:33)
[2024-12-02 08:45] LABS: Ammonia 34 umol/L (13-55)
[2024-12-02 08:52] LABS: Alanine Aminotransferase 37 U/L (0-40); Albumin Level 4.5 g/dL (3.5-5.0); Alkaline Phosphatase 76 U/L (39-117); Aspartate Amino Transferase 29 U/L (5-37); Bilirubin Direct 0.4 mg/dL (0.0-0.5); Total Protein 6.8 g/dL (6.5-8.0)
[2024-12-02 08:53] LABS: Valproate 69.7 mcg/mL (50.0-100.0)
[2024-12-02 20:00] VITALS: BP 132/71; PULSE 72; TEMP 36.7; O2SAT 99
[2024-12-03 08:00] VITALS: BP 144/69; PULSE 76; RESP 18; TEMP 36.4; O2SAT 100
[2024-12-03] MEDS: Divalproex Sodium 500 MG TABLET.DR PO ×2 (08:31→21:19)
--- NOTE | 2024-12-03 10:16 | HO.PSYCHPN ---
Subjective Subjective Date of Service: 12/02/24 Reason For Visit: schizoaffective disorder Interim History: late entry note for patient seen on 12/02/24; family meeting pt remains w/out insight. Says he's doing well since he's sleeping now; during meeting however, demonstrates paranoid ideations, thinking staff is purposefully trying to antagonize him. Refuses any additional medications even at [facility] Mental Status Exam Mental Status Exam Narrative: Pt is alert and oriented; behavior is cooperative, friendly on approach but guarded with any serious inquiry; attends groups but easily triggered and becomes internally agitated; dressed in casual attire with adequate grooming and hygiene; mood is described as good though affect congruent constricted; eye contact appropriate but becomes intense; Speech is normal rate, volume and prosody and not pressured; no psychomotor agitation/retardation present; thought process is goal directed; Thought content with suspicious ideations;; denies any SI/HI. Denies AVH though patient at times appears internally preoccupied Patients insight and judgment impaired, but likely at baseline. Diagnostics Vital Signs (24Hr): Vital Signs - 24 hr 12/02/24 20:00 12/03/24 08:00 Temperature 98.1 F 97.5 F Pulse Rate 72 76 Respiratory Rate 18 Blood Pressure 132/71 144/69 H Pulse Oximetry 99 100 Oxygen Delivery Method Room Air Room Air BMI result Body Mass Index 18.9 Labs 11/25/24 17:03 11/25/24 17:03 Labs: Laboratory Results - last 48 hr 12/02/24 08:11 Total Bilirubin 1.0 Direct Bilirubin 0.4 AST 29 ALT 37 Alkaline Phosphatase 76 Ammonia 34 Total Protein 6.8 Albumin 4.5 Valproic Acid 69.7 Medications Medications Current Medications Acetaminophen (Acetaminophen 325 Mg Tablet) 650 mg PO Q6H PRN PRN Reason: Headache/Pain, Scale 1-10 Al Hydroxide/Mg Hydroxide (Magnesium Hydrox/Alum Hydrox 30 Ml Oral.Susp) 30 ml PO Q6H PRN PRN Reason: Heartburn/Nausea Divalproex Sodium (Divalproex Sodium 500 Mg Tablet.Dr) 500 mg PO BID CELSO Last Admin: 12/03/24 08:31 Dose: 500 mg Hydroxyzine HCl (Hydroxyzine Hcl 25 Mg Tablet) 25 mg PO Q6H PRN PRN Reason: mild anxiety Last Admin: 12/02/24 01:46 Dose: 25 mg Magnesium Hydroxide (Milk Of Magnesia 30 Ml Oral.Susp) 30 ml PO DAILY PRN PRN Reason: Constipation Nicotine Polacrilex (Nicotine Polacrilex 2 Mg Gum) 4 mg BUCCAL Q2H PRN PRN Reason: Nicotine Cravings Olanzapine (Olanzapine 5 Mg Tablet) 5 mg PO Q4H PRN PRN Reason: sadie, agitation Trazodone HCl (Trazodone Hcl 50 Mg Tablet) 50 mg PO BEDTIME MRX1 PRN PRN Reason: Insomnia Allergies Allergies Allergy/AdvReac Type Severity Reaction Status Date / Time No Known Allergies Allergy Verified 11/25/24 16:14 Assessment & Plan Assessment & Plan (1) Schizoaffective disorder, bipolar type: Status: Acute Code(s): F25.0 - Schizoaffective disorder, bipolar type (2) Sickle cell trait: Status: Acute Code(s): D57.3 - Sickle-cell trait Plan HPI: 24 yo male, hx of schizoaffective disorder, bipolar type to ER with EMS after a community crisis eval. Pt exhibiting sx of psychosis, paranoia, hallucinations per report along with grandiosity and poor judgment. Family reports poor sleep. Information is taken from crisis report as pt declined to meet with team for admission eval as we were not on his schedule Family reports pt is gathering weapons in the home as he is paranoid (taser, pepper spray). Past Psychiatric History: IP: 1 Hospital course: 11/28 Asphalt Distributor Operator gave Coats warning. pt guarded with creative services writer. He says he needed to come here since he was not sleeping (for about 6 days prior to admission). He says he's feeling better now that he's slept. Asphalt Distributor Operator inquired regarding intake info and gathering tazer's, pepper spray...pt asked if he needed a student life advisor...he then said i as told 'grab this stuff and go with your parents... but then asked if he needed a student life advisor and said he does not like the line of questioning and very uncomfortable with the questions and left the interview...later he apologized to creative services writer saying he's just uncomfortable but understands this creative services writer is just doing writers job...He gave permission to talk w/ his parents.... Collateral: talked w/ father and mother (pt gave permission to talk w/ parents) this episode started about 3 weeks ago (last episode in April; only went to ED; seems that when doing OK, no clear evidence of psychosis...) -they confirmed that he did get a tazer, pepper spray which is concerning to parents...he gave his mom the tazer without explanation. Had been saying protecting us and himself, lots of people coming after him and parents...they said he was done... reached out to parents at 4am asking father if they were safe (calling from his girlfriends) -He has paranoia, afraid, thinks someone after him, hearing voices, not sleeping...turning off Wifi worried he's being tracked and followed (also worried his parents are a part of it); he's suspicious of parents and others...does not want to take medications...(though they think he was taking the depakote). -would be paranoid others thinking about hurting him...mom would have to tell him that he's safe. Will ask did you hear that? that person said i'm going to hurt you.. or that a person is laughing at me getting in way of job; lost 3 jobs due to stress Seroquel: side-effects Episodes started HS. 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 11/30 - continues to keep things superficial- glad he is sleeping - CTP 12/01 guarded, vague; calm and friendly as long as no serious inquiries no insight -agrees to labs 12/02 pt remains w/out insight. Says he's doing well since he's sleeping now; during meeting however, demonstrates paranoid ideations, thinking staff is purposefully trying to antagonize him. Refuses any additional medications even at parents behest. Does not recognize limitations due to illness -wants discharge this week; will see if pt changes his mind Plan: cv Q 15 minute checks Continue Depakote 500 mg b.i.d.; if patient amenable, may tried to increas Pt not open to further medication management Patient educated on: diagnosis and medication risk/benefits Informed Consent: does not understand Reason for continued inpatient stay Substantial Risk for: rapid decompensation Time Spent With Patient Time: Total time managing care of this patient today ____ minutes.
--- NOTE | 2024-12-03 10:17 | HO.PSYCHPN ---
Subjective Subjective Date of Service: 12/03/24 Reason For Visit: schizoaffective disorder Interim History: met with patient; discussed with team pt remains adamant that he does not want to take any additional medication; continues to express paranoid ideations but otherwise, [place] [facility] [place] Status Exam Mental Status Exam Narrative: Pt is alert and oriented; behavior is cooperative, friendly on approach but guarded with any serious inquiry; attends groups but easily triggered and becomes internally agitated; dressed in casual attire with adequate grooming and hygiene; mood is described as good though affect congruent constricted; eye contact appropriate but becomes intense; Speech is normal rate, volume and prosody and not pressured; no psychomotor agitation/retardation present; thought process is goal directed; Thought content with suspicious ideations;; denies any SI/HI. Denies AVH though patient at times appears internally preoccupied Patients insight and judgment impaired, but likely at baseline. Diagnostics Vital Signs (24Hr): Vital Signs - 24 hr 12/02/24 20:00 12/03/24 08:00 Temperature 98.1 F 97.5 F Pulse Rate 72 76 Respiratory Rate 18 Blood Pressure 132/71 144/69 H Pulse Oximetry 99 100 Oxygen Delivery Method Room Air Room Air BMI result Body Mass Index 18.9 Labs 11/25/24 17:03 11/25/24 17:03 Labs: Laboratory Results - last 48 hr 12/02/24 08:11 Total Bilirubin 1.0 Direct Bilirubin 0.4 AST 29 ALT 37 Alkaline Phosphatase 76 Ammonia 34 Total Protein 6.8 Albumin 4.5 Valproic Acid 69.7 Medications Medications Current Medications Acetaminophen (Acetaminophen 325 Mg Tablet) 650 mg PO Q6H PRN PRN Reason: Headache/Pain, Scale 1-10 Al Hydroxide/Mg Hydroxide (Magnesium Hydrox/Alum Hydrox 30 Ml Oral.Susp) 30 ml PO Q6H PRN PRN Reason: Heartburn/Nausea Divalproex Sodium (Divalproex Sodium 500 Mg Tablet.Dr) 500 mg PO BID CELSO Last Admin: 12/03/24 08:31 Dose: 500 mg Hydroxyzine HCl (Hydroxyzine Hcl 25 Mg Tablet) 25 mg PO Q6H PRN PRN Reason: mild anxiety Last Admin: 12/02/24 01:46 Dose: 25 mg Magnesium Hydroxide (Milk Of Magnesia 30 Ml Oral.Susp) 30 ml PO DAILY PRN PRN Reason: Constipation Nicotine Polacrilex (Nicotine Polacrilex 2 Mg Gum) 4 mg BUCCAL Q2H PRN PRN Reason: Nicotine Cravings Olanzapine (Olanzapine 5 Mg Tablet) 5 mg PO Q4H PRN PRN Reason: sadie, agitation Trazodone HCl (Trazodone Hcl 50 Mg Tablet) 50 mg PO BEDTIME MRX1 PRN PRN Reason: Insomnia Allergies Allergies Allergy/AdvReac Type Severity Reaction Status Date / Time No Known Allergies Allergy Verified 11/25/24 16:14 Assessment & Plan Assessment & Plan (1) Schizoaffective disorder, bipolar type: Status: Acute Code(s): F25.0 - Schizoaffective disorder, bipolar type (2) Sickle cell trait: Status: Acute Code(s): D57.3 - Sickle-cell trait Plan HPI: 24 yo male, hx of schizoaffective disorder, bipolar type to ER with EMS after a community crisis eval. Pt exhibiting sx of psychosis, paranoia, hallucinations per report along with grandiosity and poor judgment. Family reports poor sleep. Information is taken from crisis report as pt declined to meet with team for admission eval as we were not on his schedule Family reports pt is gathering weapons in the home as he is paranoid (taser, pepper spray). Past Psychiatric History: IP: 1 Hospital course: 11/28 Associate Professor Of Theatre gave Coats warning. pt guarded with service writer advisor. He says he needed to come here since he was not sleeping (for about 6 days prior to admission). He says he's feeling better now that he's slept. Associate Professor Of Theatre inquired regarding intake info and gathering tazer's, pepper spray...pt asked if he needed a take out waitress...he then said i as told 'grab this stuff and go with your parents... but then asked if he needed a take out waitress and said he does not like the line of questioning and very uncomfortable with the questions and left the interview...later he apologized to service writer advisor saying he's just uncomfortable but understands this service writer advisor is just doing writers job...He gave permission to talk w/ his parents.... Collateral: talked w/ father and mother (pt gave permission to talk w/ parents) this episode started about 3 weeks ago (last episode in April; only went to ED; seems that when doing OK, no clear evidence of psychosis...) -they confirmed that he did get a tazer, pepper spray which is concerning to parents...he gave his mom the tazer without explanation. Had been saying protecting us and himself, lots of people coming after him and parents...they said he was done... reached out to parents at 4am asking father if they were safe (calling from his girlfriends) -He has paranoia, afraid, thinks someone after him, hearing voices, not sleeping...turning off Wifi worried he's being tracked and followed (also worried his parents are a part of it); he's suspicious of parents and others...does not want to take medications...(though they think he was taking the depakote). -would be paranoid others thinking about hurting him...mom would have to tell him that he's safe. Will ask did you hear that? that person said i'm going to hurt you.. or that a person is laughing at me getting in way of job; lost 3 jobs due to stress Seroquel: side-effects Episodes started HS. 2018; past hospitalization Sickle Cell trait Hematoma at 8months old with neurological sequela 12/02 pt remains w/out insight. Says he's doing well since he's sleeping now; during meeting however, demonstrates paranoid ideations, thinking staff is purposefully trying to antagonize him. Refuses any additional medications even at parents behest. Does not recognize limitations due to illness -wants discharge this week 12/03 no change in presentation; still won't take additional medication. Will give a few more days and if remains stable, will likely proceed with dc Plan: cv Q 15 minute checks Continue Depakote 500 mg b.i.d.; if patient amenable, may tried to increas Pt not open to further medication management Patient educated on: diagnosis and medication risk/benefits Informed Consent: does not understand Reason for continued inpatient stay Substantial Risk for: rapid decompensation Time Spent With Patient Time: Total time managing care of this patient today ____ minutes.
[2024-12-03 19:49] VITALS: O2SAT 100
[2024-12-03 20:05] VITALS: BP 147/82
[2024-12-04 07:00] VITALS: BMI 19.7
[2024-12-04 08:00] VITALS: BP 151/80; PULSE 80; RESP 16; TEMP 36.4; O2SAT 99
[2024-12-04] MEDS: Divalproex Sodium 500 MG TABLET.DR PO ×2 (08:36→22:28)
[2024-12-04 20:00] VITALS: BP 104/57; PULSE 83; RESP 16; TEMP 36.9; O2SAT 99
[2024-12-05 08:00] VITALS: BP 146/79; PULSE 85; RESP 16; TEMP 36.7; O2SAT 100
[2024-12-05] MEDS: Divalproex Sodium 500 MG TABLET.DR PO ×2 (09:04→21:20)
--- NOTE | 2024-12-05 10:01 | HO.PSYCHPN ---
Subjective Subjective Date of Service: 12/04/24 Reason For Visit: schizoaffective disorder Interim History: late entry note for pt seen on 12/04/24; discussed with team same presentation; accepts keno writer reasoning for risperdal but politlely declines Mental Status Exam Mental Status Exam Narrative: Pt is alert and oriented; behavior is cooperative, friendly on approach but guarded with any serious inquiry; attends groups but easily triggered and becomes internally agitated; dressed in casual attire with adequate grooming and hygiene; mood is described as good though affect congruent constricted; eye contact appropriate but becomes intense; Speech is normal rate, volume and prosody and not pressured; no psychomotor agitation/retardation present; thought process is goal directed; Thought content with suspicious ideations;; denies any SI/HI. Denies AVH though patient at times appears internally preoccupied Patients insight and judgment impaired, but at baseline and adequate. Diagnostics Vital Signs (24Hr): Vital Signs - 24 hr 12/04/24 20:00 12/05/24 08:00 Temperature 98.5 F 98.1 F Pulse Rate 83 85 Respiratory Rate 16 16 Blood Pressure 104/57 L 146/79 H Pulse Oximetry 99 100 Oxygen Delivery Method Room Air Room Air BMI result Body Mass Index 19.7 Labs 11/25/24 17:03 11/25/24 17:03 Medications Medications Current Medications Acetaminophen (Acetaminophen 325 Mg Tablet) 650 mg PO Q6H PRN PRN Reason: Headache/Pain, Scale 1-10 Al Hydroxide/Mg Hydroxide (Magnesium Hydrox/Alum Hydrox 30 Ml Oral.Susp) 30 ml PO Q6H PRN PRN Reason: Heartburn/Nausea Divalproex Sodium (Divalproex Sodium 500 Mg Tablet.Dr) 500 mg PO BID [facility] Last Admin: 12/05/24 09:04 Dose: 500 mg Hydroxyzine HCl (Hydroxyzine Hcl 25 Mg Tablet) 25 mg PO Q6H PRN PRN Reason: mild anxiety Last Admin: 12/02/24 01:46 Dose: 25 mg Magnesium Hydroxide (Milk Of Magnesia 30 Ml Oral.Susp) 30 ml PO DAILY PRN PRN Reason: Constipation Nicotine Polacrilex (Nicotine Polacrilex 2 Mg Gum) 4 mg BUCCAL Q2H PRN PRN Reason: Nicotine Cravings Olanzapine (Olanzapine 5 Mg Tablet) 5 mg PO Q4H PRN PRN Reason: sadie, agitation Trazodone HCl (Trazodone Hcl 50 Mg Tablet) 50 mg PO BEDTIME MRX1 PRN PRN Reason: Insomnia Allergies Allergies Allergy/AdvReac Type Severity Reaction Status Date / Time No Known Allergies Allergy Verified 11/25/24 16:14 Assessment & Plan Assessment & Plan (1) Schizoaffective disorder, bipolar type: Status: Acute Code(s): F25.0 - Schizoaffective disorder, bipolar type (2) Sickle cell trait: Status: Acute Code(s): D57.3 - Sickle-cell trait Plan HPI: 24 yo male, hx of schizoaffective disorder, bipolar type to ER with EMS after a community crisis eval. Pt exhibiting sx of psychosis, paranoia, hallucinations per report along with grandiosity and poor judgment. Family reports poor sleep. Information is taken from crisis report as pt declined to meet with team for admission eval as we were not on his schedule Family reports pt is gathering weapons in the home as he is paranoid (taser, pepper spray). Past Psychiatric History: IP: 1 Hospital course: 11/28 Software Licensing Executive gave Coats warning. pt guarded with keno writer. He says he needed to come here since he was not sleeping (for about 6 days prior to admission). He says he's feeling better now that he's slept. Software Licensing Executive inquired regarding intake info and gathering tazer's, pepper spray...pt asked if he needed a inspector handbag frames...he then said i as told 'grab this stuff and go with your parents... but then asked if he needed a inspector handbag frames and said he does not like the line of questioning and very uncomfortable with the questions and left the interview...later he apologized to keno writer saying he's just uncomfortable but understands this keno writer is just doing writers job...He gave permission to talk w/ his parents.... Collateral: talked w/ father and mother (pt gave permission to talk w/ parents) this episode started about 3 weeks ago (last episode in April; only went to ED; seems that when doing OK, no clear evidence of psychosis...) -they confirmed that he did get a tazer, pepper spray which is concerning to parents...he gave his mom the tazer without explanation. Had been saying protecting us and himself, lots of people coming after him and parents...they said he was done... reached out to parents at 4am asking father if they were safe (calling from his girlfriends) -He has paranoia, afraid, thinks someone after him, hearing voices, not sleeping...turning off Wifi worried he's being tracked and followed (also worried his parents are a part of it); he's suspicious of parents and others...does not want to take medications...(though they think he was taking the depakote). -would be paranoid others thinking about hurting him...mom would have to tell him that he's safe. Will ask did you hear that? that person said i'm going to hurt you.. or that a person is laughing at me getting in way of job; lost 3 jobs due to stress Seroquel: side-effects Episodes started HS. 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 Says he's doing well since he's sleeping now; during meeting however, demonstrates paranoid ideations, thinking staff is purposefully trying to antagonize him. Refuses any additional medications even at parents behest. Does not recognize limitations due to illness -wants discharge this week 4/2 no change in presentation; still won't take additional medication. Will give a few more days and if remains stable, will likely proceed with dc 4/3 limited insight but stable Plan: cv Q 15 minute checks Continue Depakote 500 mg b.i.d.; if patient amenable, may tried to increas Pt not open to further medication management Patient educated on: diagnosis and medication risk/benefits Informed Consent: does not understand Reason for continued inpatient stay Substantial Risk for: stable for discharge Time Spent With Patient Time: Total time managing care of this patient today ____ minutes.
--- NOTE | 2024-12-05 10:02 | HO.PSYCHPN ---
Subjective Subjective Date of Service: 12/05/24 Reason For Visit: schizoaffective disorder Interim History: met with pt; discussed with team remains with same presentation and looking forward to dc; in good behavioral and impulse control Mental Status Exam Mental Status Exam Narrative: Pt is alert and oriented; behavior is cooperative, friendly on approach but guarded with any serious inquiry; attends groups but easily triggered and becomes internally agitated; dressed in casual attire with adequate grooming and hygiene; mood is described as good though affect congruent constricted; eye contact appropriate but becomes intense; Speech is normal rate, volume and prosody and not pressured; no psychomotor agitation/retardation present; thought process is goal directed; Thought content with suspicious ideations;; denies any SI/HI. Denies AVH though patient at times appears internally preoccupied Patients insight and judgment impaired, but at baseline and adequate. Diagnostics Vital Signs (24Hr): Vital Signs - 24 hr 12/04/24 20:00 12/05/24 08:00 Temperature 98.5 F 98.1 F Pulse Rate 83 85 Respiratory Rate 16 16 Blood Pressure 104/57 L 146/79 H Pulse Oximetry 99 100 Oxygen Delivery Method Room Air Room Air BMI result Body Mass Index 19.7 Labs 11/25/24 17:03 11/25/24 17:03 Medications Medications Current Medications Acetaminophen (Acetaminophen 325 Mg Tablet) 650 mg PO Q6H PRN PRN Reason: Headache/Pain, Scale 1-10 Al Hydroxide/Mg Hydroxide (Magnesium Hydrox/Alum Hydrox 30 Ml Oral.Susp) 30 ml PO Q6H PRN PRN Reason: Heartburn/Nausea Divalproex Sodium (Divalproex Sodium 500 Mg Tablet.) 500 mg PO BID [facility] Last Admin: 12/05/24 09:04 Dose: 500 mg Hydroxyzine HCl (Hydroxyzine Hcl 25 Mg Tablet) 25 mg PO Q6H PRN PRN Reason: mild anxiety Last Admin: 12/02/24 01:46 Dose: 25 mg Magnesium Hydroxide (Milk Of Magnesia 30 Ml Oral.Susp) 30 ml PO DAILY PRN PRN Reason: Constipation Nicotine Polacrilex (Nicotine Polacrilex 2 Mg Gum) 4 mg BUCCAL Q2H PRN PRN Reason: Nicotine Cravings Olanzapine (Olanzapine 5 Mg Tablet) 5 mg PO Q4H PRN PRN Reason: sadie, agitation Trazodone HCl (Trazodone Hcl 50 Mg Tablet) 50 mg PO BEDTIME MRX1 PRN PRN Reason: Insomnia Allergies Allergies Allergy/AdvReac Type Severity Reaction Status Date / Time No Known Allergies Allergy Verified 11/25/24 16:14 Assessment & Plan Assessment & Plan (1) Schizoaffective disorder, bipolar type: Status: Acute Code(s): F25.0 - Schizoaffective disorder, bipolar type (2) Sickle cell trait: Status: Acute Code(s): D57.3 - Sickle-cell trait Plan HPI: 24 yo male, hx of schizoaffective disorder, bipolar type to ER with EMS after a community crisis eval. Pt exhibiting sx of psychosis, paranoia, hallucinations per report along with grandiosity and poor judgment. Family reports poor sleep. Information is taken from crisis report as pt declined to meet with team for admission eval as we were not on his schedule Family reports pt is gathering weapons in the home as he is paranoid (taser, pepper spray). Past Psychiatric History: IP: 1 Hospital course: 11/28 Solid Waste Technician gave Coats warning. pt guarded with writer technical publications. He says he needed to come here since he was not sleeping (for about 6 days prior to admission). He says he's feeling better now that he's slept. Solid Waste Technician inquired regarding intake info and gathering tazer's, pepper spray...pt asked if he needed a electric welder...he then said i as told 'grab this stuff and go with your parents... but then asked if he needed a electric welder and said he does not like the line of questioning and very uncomfortable with the questions and left the interview...later he apologized to writer technical publications saying he's just uncomfortable but understands this writer technical publications is just doing writers job...He gave permission to talk w/ his parents.... Collateral: talked w/ father and mother (pt gave permission to talk w/ parents) this episode started about 3 weeks ago (last episode in April; only went to ED; seems that when doing OK, no clear evidence of psychosis...) -they confirmed that he did get a tazer, pepper spray which is concerning to parents...he gave his mom the tazer without explanation. Had been saying protecting us and himself, lots of people coming after him and parents...they said he was done... reached out to parents at 4am asking father if they were safe (calling from his girlfriends) -He has paranoia, afraid, thinks someone after him, hearing voices, not sleeping...turning off Wifi worried he's being tracked and followed (also worried his parents are a part of it); he's suspicious of parents and others...does not want to take medications...(though they think he was taking the depakote). -would be paranoid others thinking about hurting him...mom would have to tell him that he's safe. Will ask did you hear that? that person said i'm going to hurt you.. or that a person is laughing at me getting in way of job; lost 3 jobs due to stress Seroquel: side-effects Episodes started HS. 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 Says he's doing well since he's sleeping now; during meeting however, demonstrates paranoid ideations, thinking staff is purposefully trying to antagonize him. Refuses any additional medications even at parents behest. Does not recognize limitations due to illness -wants discharge this week 4/2 no change in presentation; still won't take additional medication. Will give a few more days and if remains stable, will likely proceed with dc 4/3 limited insight but stable 4/4 at baseline which includes some paranoid ideations but pt is stable, in good behavioral and impulse control. able to dc to community and not in imminent riks for harm to self or others Plan: cv Q 15 minute checks Continue Depakote 500 mg b.i.d.; if patient amenable, may tried to increas Pt not open to further medication management Reason for continued inpatient stay Substantial Risk for: stable for discharge Time Spent With Patient Time: Total time managing care of this patient today ____ minutes.
[2024-12-05 20:00] VITALS: BP 140/89; PULSE 100; RESP 16; TEMP 36.6; O2SAT 97
--- NOTE | 2024-12-06 01:35 | P.DS_ITS ---
DS: Providers Provider Date of Service: 12/06/24 Date of admission: 11/26/24 13:01 Date of discharge: 12/06/24 Primary care physician: Unknown Physician DS: Diagnosis Discharge Diagnosis (1) Schizoaffective disorder, bipolar type: Status: Acute (2) Sickle cell trait: Status: Acute DS: Medications Discharge Medications Home Medications: Previous Rx's ?Medication ?Instructions ?Recorded divalproex 500 mg tablet,delayed 500 mg PO BID 30 days #60 tabs 12/06/24 release Data Data Completed and Pending Completed studies during hospitalization [Text1]: 12/02/24 08:11 Total Bilirubin 1.0 Direct Bilirubin 0.4 AST 29 ALT 37 Alkaline Phosphatase 76 Ammonia 34 Total Protein 6.8 Albumin 4.5 Valproic Acid 69.7 DS: Summary Hospital Course Hospital Course: HPI: 24 yo male, hx of schizoaffective disorder, bipolar type to ER with EMS after a community crisis eval. Pt exhibiting sx of psychosis, paranoia, hallucinations per report along with grandiosity and poor judgment. Family reports poor sleep. Information is taken from crisis report as pt declined to meet with team for admission eval as we were not on his schedule Family reports pt is gathering weapons in the home as he is paranoid (taser, pepper spray). Past Psychiatric History: IP: 1 Hospital course: 11/28 Loader Helper [employer] gave Coats warning. pt guarded with typewriter tester. He says he needed to come here since he was not sleeping (for about 6 days prior to admission). He says he's feeling better now that he's slept. Loader Helper [employer] inquired regarding intake info and gathering tazer's, pepper spray...pt asked if he needed a commercial real estate associate...he then said i as told 'grab this stuff and go with your parents... but then asked if he needed a commercial real estate associate and said he does not like the line of questioning and very uncomfortable with the questions and left the interview...later he apologized to typewriter tester saying he's just uncomfortable but understands this typewriter tester is just doing writers job...He gave permission to talk w/ his parents.... Collateral: talked w/ father and mother (pt gave permission to talk w/ parents) this episode started about 3 weeks ago (last episode in April; only went to ED; seems that when doing OK, no clear evidence of psychosis...) -they confirmed that he did get a tazer, pepper spray which is concerning to parents...he gave his mom the tazer without explanation. Had been saying protecting us and himself, lots of people coming after him and parents...they said he was done... reached out to parents at 4am asking father if they were safe (calling from his girlfriends) -He has paranoia, afraid, thinks someone after him, hearing voices, not sleeping...turning off Wifi worried he's being tracked and followed (also worried his parents are a part of it); he's suspicious of parents and others...does not want to take medications...(though they think he was taking the depakote). -would be paranoid others thinking about hurting him...mom would have to tell him that he's safe. Will ask did you hear that? that person said i'm going to hurt you.. or that a person is laughing at me getting in way of job; lost 3 jobs due to stress Seroquel: side-effects Episodes started HS. 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 Says he's doing well since he's sleeping now; during meeting however, demonstrates paranoid ideations, thinking staff is purposefully trying to antagonize him. Refuses any additional medications even at parents behest. Does not recognize limitations due to illness -wants discharge this week 4/2 no change in presentation; still won't take additional medication. Will give a few more days and if remains stable, will likely proceed with dc 4/3 limited insight but stable 4/4 at baseline which includes some paranoid ideations but pt is stable, in good behavioral and impulse control. able to dc to community and not in imminent riks for harm to self or others Plan: cv Q 15 minute checks Continue Depakote 500 mg b.i.d.; if patient amenable, may tried to increas Pt not open to further medication management Time Spent with Patient Time attestation: Total time managing care of this patient today ____ minutes. Discharge Plan Discharge Anticipated Discharge Date/Time: 12/06/24 11:06 Patient Disposition: Home, Self-Care Discharge Diagnosis: schizoaffective disorder, bipolar type Referrals: Psychiatry with ABBY Mckoy [Other] - 12/22/24 10:30 am (This will be a 40 minute appointment. ) [facility] Partial Hospitalization Program [Other] - 1 Week (You can self refer to this program. Group based program, M-F, 9-2pm, and runs for two weeks.) [facility] [Other] - 1 Week ([facility] empowers people with disabilities to live life on their own terms. Our programs and services expand possibilities in careers and training, home and community life, and legal rights and benefits ? including disability determination for federal programs. ) Physician,Rene J [Primary Care Provider] - 1 Week (Pt to schedule follow up with PCP after discharge. ) Discharge Medications: Continued divalproex 500 mg tablet,delayed release (DR/EC) 500 mg PO BID 30 Days Qty: 60 0RF Discharge Orders: Discharge Order (Routine); Ordered 12/06/24 Ordered By: Serjio Norman Diet: Regular diet Activity on Discharge: As tolerated Stand Alone Forms: Patient Portal Discharge page, Community Support Print Language: Unable To Collect Care Plan Goals: Maintain mood and safe behaviors Take medications as prescribed Practice coping skills Continue with outpatient providers and reach out to them as needed Health Concerns: Mood stability and behaviors Sickle cell trait Plan of Treatment: Follow up with your PCP, psychiatric provider and other outpatient providers regarding above concerns Take medications as prescribed Assessment: Risk assessment at time of discharge:? Patient was interviewed prior to discharge and found to be fully oriented and without any SI or HI. Patient has improved insight and judgment and wants to continue treatment. Patient is not in imminent risk of harm to self or others and has a safety plan that includes presenting to the closest ER or calling 911 if feeling unsafe.? Patient has been observed closely by nursing and unit staff throughout admission; patient has not engaged in any behaviors that suggest dangerousness to self or others and has demonstrated appropriate behaviors and impulse control Discharge Date/Time: 12/06/24 11:45
[2024-12-06 07:57] VITALS: BP 123/66; PULSE 80; TEMP 36.4; O2SAT 98
[2024-12-06] MEDS: Divalproex Sodium 500 MG TABLET.DR PO (08:11)
== END 2024-12-06 11:45 | disposition home or self-care (01) | DRG 750 ==
LOC: HO.ED 19:51 → HO.PM5 11-26 13:07
PROVIDERS: Admitting Provider Clinical Nurse Specialist Psychiatric/Mental Health, Adult; Emergency Provider Emergency Medicine Emergency Medical Services; Visit Provider Psychiatry & Neurology Psychiatry
DX: F25.0 Schizoaffective disorder, bipolar type (principal); D57.3 Sickle-cell trait; Z23 Encounter for immunization; Z79.899 Other long term (current) drug therapy
CPT/HCPCS: 36415; 80053; 80061; 80076; 80164; 80307; 81001; 82140; 82607; 82746; 83036; 83735; 84439; 84443; 85025; 90656; 93005; 99285; S9485

== ENCOUNTER 2024-11-26 13:01 | Outpatient (BNV) | payer OTHER, SELFPAY | END 2024-11-26 13:07 | PROVIDERS: Admitting Provider Clinical Nurse Specialist Psychiatric/Mental Health, Adult; Emergency Provider Emergency Medicine Emergency Medical Services; Visit Provider Internal Medicine Cardiovascular Disease | DX: I49.1 Atrial premature depolarization (principal); R00.1 Bradycardia, unspecified | CPT/HCPCS: 93010 ==

== ENCOUNTER → 2024-11-26 13:01 | Outpatient (BNV) | payer OTHER, SELFPAY | PROVIDERS: Admitting Provider Clinical Nurse Specialist Psychiatric/Mental Health, Adult; Emergency Provider Emergency Medicine Emergency Medical Services; Visit Provider Clinical Nurse Specialist Psychiatric/Mental Health, Adult | DX: F25.0 Schizoaffective disorder, bipolar type (principal); D57.3 Sickle-cell trait | CPT/HCPCS: 90792; 99232 ==